=== PATIENT | female | born 1930 | race Hispanic/Latino ===

== ENCOUNTER 2018-09-10 15:39 | Emergency (ER) | payer MEDICARE ==
--- NOTE | 2018-09-10 16:05 | Emergency Department Report ---
Chief Complaint: Pain General Stated Complaint: BODY PAIN Time Seen by Provider: 09/10/18 16:01 - HPI History of Present Illness: This is a 88 y.o. female that presents to the ER with generalized pain. Patient live in a personal senior care and they brought her in for pain control. She is currently taking oxycodone and Tylenol arthritis. PMH: HTN and chronic pain. - Exam Vital Signs: Vital Signs 09/10/18 15:52 Temperature 97.8 F Pulse Rate 95 H Respiratory 22 Rate Blood Pressure 149/84 O2 Sat by Pulse 97 Oximetry MSE screening note: Focused history and physical exam performed. Due to findings the following was ordered: ACC for further evaluation. ED Disposition for MSE Condition: Stable
[2018-09-10] MEDS ORDERED: MORPHINE IV ONE (17:27)
[2018-09-10] MEDS ORDERED: ZOFRAN IV ONE (17:27)
[2018-09-10 17:53] LABS: Basophils # (Auto) 0.1 K/mm3 (0.0-0.1); Basophils % (Auto) 0.5 % (0.0-1.8); Eosinophils # (Auto) 0.2 K/mm3 (0.0-0.4); Eosinophils % (Auto) 1.1 % (0.0-4.3); Hematocrit 48.8 % (30.3-42.9); Lymphocytes # (Auto) 2.5 K/mm3 (1.2-5.4); Lymphocytes % (Auto) 13.6 % (13.4-35.0); Mean Corpuscular HGB Conc 33 % (30-34); Mean Corpuscular Volume 89 fl (79-97); Monocytes # (Auto) 1.2 K/mm3 (0.0-0.8); Monocytes % (Auto) 6.6 % (0.0-7.3); Platelet Count 578 K/mm3 (140-440); Red Blood Count 5.52 M/mm3 (3.65-5.03); Red Cell Distribution Width 13.9 % (13.2-15.2)
--- NOTE | 2018-09-10 18:08 | Emergency Department Report ---
<SARAH PISANO - Last Filed: 09/10/18 18:03> ED General Adult HPI - General Chief complaint: Pain General Stated complaint: BODY PAIN Time Seen by Provider: 09/10/18 16:01 Source: patient, EMS Mode of arrival: Wheelchair Limitations: Physical Limitation - History of Present Illness Initial comments: Pt is a 88 yo female who presents to the ED with c/o chronic pain. The patient states she has pain all over. She denies any new fall, injury, or trauma. she denies any CP, SOB, V/D, or abdominal pain. she states she last had a BM this morning. She is requesting morphine at this time for her chronic pain. She states she lives at an assisted living facility, [facility] and states her chronic pain is treated there, and she states she has gone to a pain clinic in the past. The registration personnel, Michelle spoke with her power of employment law attorney last name Mrs. Stacy who states that the patient requests to go to the hospital on a r egular basis to receive morphine for her chronic pain. Severity scale (0 -10): 9 - Related Data Home Medications Medication Instructions Recorded Confirmed Last Taken Aspirin [Aspirin BABY CHEW TAB] 81 mg PO QDAY 06/20/15 06/20/15 Unknown Bethanechol [Urecholine] 25 mg PO BID 06/20/15 06/20/15 Unknown Calcitriol [Rocaltrol] 0.25 mcg PO QDAY 06/20/15 06/20/15 Unknown Calcium Carbonate/Vitamin D3 1 each PO BID 06/20/15 06/20/15 Unknown [Calcium 500-Vit D3 400 Tablet] Citalopram [Celexa] 20 mg PO QDAY 06/20/15 06/20/15 Unknown Docusate Sodium [Colace CAP] 100 mg PO BID PRN 06/20/15 06/20/15 Unknown Furosemide [Lasix TAB] 20 mg PO QDAY 06/20/15 06/20/15 Unknown Gemfibrozil [Lopid] 600 mg PO QHS 06/20/15 06/20/15 Unknown Losartan [Cozaar] 50 mg PO BID 06/20/15 06/20/15 Unknown Magnesium Hydroxide [Milk of 30 ml PO BID PRN 06/20/15 06/20/15 Unknown Magnesia] Multivit-Min/FA/Lycopen/Lutein 1 each PO DAILY 06/20/15 06/20/15 Unknown [Centrum Silver Tablet] NIFEdipine XL [Procardia Xl] 60 mg PO Q12HR 06/20/15 06/20/15 Unknown Temazepam [Restoril] 30 mg PO QHS PRN 06/20/15 06/20/15 Unknown Previous Rx's Medication Instructions Recorded Last Taken Type Famotidine [Pepcid] 20 mg PO BID #60 tablet 06/25/15 Unknown Rx Oxycodone HCl/Acetaminophen 1 each PO Q12H PRN #10 tablet 06/25/15 Unknown Rx [Percocet 10/325 mg] cephALEXin [Keflex] 500 mg PO Q12HR #10 capsule 06/25/15 Unknown Rx Nitrofurantoin [place]/M-Cryst 100 mg PO Q12HR #14 capsule 09/10/18 Unknown Rx [Macrobid CAP] Allergies Allergy/AdvReac Type Severity Reaction Status Date / Time No Known Allergies Allergy Verified 06/20/15 14:11 ED Review of Systems Comment: All other systems reviewed and negative ED Past Medical Hx - Past Medical History Previous Medical History?: Yes Hx Hypertension: Yes Hx HIV: No - Surgical History Past Surgical History?: Yes Additional Surgical History: bilat mastectomy, bilateral knee replacement - Social History Smoking Status: Never Smoker Substance Use Type: None - Medications Home Medications: Home Medications Medication Instructions Recorded Confirmed Last Taken Type Aspirin [Aspirin BABY CHEW TAB] 81 mg PO QDAY 06/20/15 06/20/15 Unknown History Bethanechol [Urecholine] 25 mg PO BID 06/20/15 06/20/15 Unknown History Calcitriol [Rocaltrol] 0.25 mcg PO QDAY 06/20/15 06/20/15 Unknown History Calcium Carbonate/Vitamin D3 1 each PO BID 06/20/15 06/20/15 Unknown History [Calcium 500-Vit D3 400 Tablet] Citalopram [Celexa] 20 mg PO QDAY 06/20/15 06/20/15 Unknown History Docusate Sodium [Colace CAP] 100 mg PO BID PRN 06/20/15 06/20/15 Unknown History Furosemide [Lasix TAB] 20 mg PO QDAY 06/20/15 06/20/15 Unknown History Gemfibrozil [Lopid] 600 mg PO QHS 06/20/15 06/20/15 Unknown History Losartan [Cozaar] 50 mg PO BID 06/20/15 06/20/15 Unknown History Magnesium Hydroxide [Milk of 30 ml PO BID PRN 06/20/15 06/20/15 Unknown History Magnesia] Multivit-Min/FA/Lycopen/Lutein 1 each PO DAILY 06/20/15 06/20/15 Unknown History [Centrum Silver Tablet] NIFEdipine XL [Procardia Xl] 60 mg PO Q12HR 06/20/15 06/20/15 Unknown History Temazepam [Restoril] 30 mg PO QHS PRN 06/20/15 06/20/15 Unknown History Famotidine [Pepcid] 20 mg PO BID #60 tablet 06/25/15 Unknown Rx Oxycodone HCl/Acetaminophen 1 each PO Q12H PRN #10 tablet 06/25/15 Unknown Rx [Percocet 10/325 mg] cephALEXin [Keflex] 500 mg PO Q12HR #10 capsule 06/25/15 Unknown Rx Nitrofurantoin [place]/M-Cryst 100 mg PO Q12HR #14 capsule 09/10/18 Unknown Rx [Macrobid CAP] ED Physical Exam - General Limitations: Physical Limitation General appearance: alert, in no apparent distress - Head Head exam: Present: atraumatic, normocephalic - Eye Eye exam: Present: other (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 Absent: respiratory distress, wheezes, rales, rhonchi, stridor, chest wall tenderness, accessory muscle use, decreased breath sounds, prolonged expiratory - Cardiovascular Cardiovascular Exam: Present: normal rhythm, tachycardia (mild), normal heart sounds. Absent: systolic murmur, diastolic murmur, rubs, gallop - Neurological Exam Neurological exam: Present: alert, oriented X3 - Psychiatric Psychiatric exam: Present: normal affect, normal mood - Skin Skin exam: Present: warm, dry, intact ED Medical Decision Making - Lab Data Result diagrams: 09/10/18 17:10 ED Disposition Clinical Impression: UTI (urinary tract infection), Chronic pain Disposition: DC-01 TO HOME OR SELFCARE Condition: Stable Instructions: Urinary Tract Infection in Women (ED), Chronic Pain (ED) Prescriptions: Nitrofurantoin [place]/M-Cryst [Macrobid CAP] 100 mg PO Q12HR #14 capsule Referrals: BURTON SPRAGUE MD [Primary Care Provider] - 3-5 Days <DEION BORGES - Last Filed: 09/11/18 00:38> ED Review of Systems ROS: Stated complaint: BODY PAIN Other details as noted in HPI ED Course Vital Signs 09/10/18 09/10/18 09/10/18 15:52 18:17 18:46 Temperature 97.8 F Pulse Rate 95 H Respiratory 22 16 17 Rate Blood Pressure 149/84 Blood Pressure [Left] O2 Sat by Pulse 97 Oximetry 09/10/18 09/10/18 09/10/18 19:20 20:00 21:00 Temperature 98.2 F Pulse Rate 83 84 82 Respiratory 16 17 16 Rate Blood Pressure 133/59 118/56 Blood Pressure 133/79 [Left] O2 Sat by Pulse 92 88 95 Oximetry ED Medical Decision Making - Lab Data Result diagrams: 09/10/18 17:10 09/10/18 17:10 - Radiology Data Radiology results: report reviewed, image reviewed - Medical Decision Making 88 yo F w/ chonic pain states she is out of medications. Reports pain all over. Labs show elevated WBCs of 18, pt afebrile. Pt denies any other complaints. Remainder of labs unremarkable. Vitals normal. UTI on UA. Pt given rx for macrobid. Advised to f/u with PCP. Return precautions given. - Differential Diagnosis PNA, UTI Critical care attestation.: If time is entered above; I have spent that time in minutes in the direct care of this critically ill patient, excluding procedure time. ED Disposition Is pt being admited?: No Time of Disposition: 20:17
[2018-09-10 18:12] LABS: Calcium 10.8 mg/dL (8.4-10.2)
[2018-09-10] MEDS ORDERED: NACL 0.9% 1000 ML 1,000 ML IV ONE (18:22)
--- NOTE | 2018-09-10 18:30 | XRay Report ---
PROCEDURE: XR ABD SERIES W CXR 1V TECHNIQUE: 5 views HISTORY: nausea, chronic pain COMPARISONS: None FINDINGS: No infiltrate, pleural effusion, or pneumothorax seen. The cardiomediastinal silhouette is normal. Hiatal hernia is noted. 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 Mild generalized gaseous distention of the bowel is nonspecific. No bowel obstruction, free air or air-fluid levels. Surgical clips noted in the right abdomen. Thoracolumbar scoliosis and lumbar degenerative changes are present. IMPRESSION: No pulmonary infiltrates. Hiatal hernia. Nonspecific, nonobstructive bowel gas pattern. This document is electronically signed by Víctor Felipe MD., Sep 10 2018 06:28:44 PM ET
[2018-09-10 19:46] LABS: Bilirubin,Urine NEG (Negative); Blood,Urine NEG (Negative); Color,Urine Amber (Yellow); Hyaline Casts,Urine 17 /LPF; Mucus,Urine FEW /HPF; Protein,Urine <15 mg/dL mg/dL (Negative); Urobilinogen,Urine < 2.0 mg/dL (<2.0)
[2018-09-10 22:17] VITALS: BP 118/56
== END 2018-09-10 21:50 | disposition home or self-care (01) ==
LOC: ED 15:39
DX: G89.29 Other chronic pain (principal); N39.0 Urinary tract infection, site not specified; I10 Essential (primary) hypertension; H54.10 Blindness, one eye, low vision other eye, unspecified eyes; Z90.13 Acquired absence of bilateral breasts and nipples; Z79.82 Long term (current) use of aspirin; Z96.653 Presence of artificial knee joint, bilateral
CPT/HCPCS: 36415; 74022; 80048; 81001; 85025; 93005; 93010; 96374; 96375; 99284; J2270; J2405